=== PATIENT | female | born 1945 | race Caucasian/White ===

== ENCOUNTER 2016-09-18 14:20 | Observation (INO) | payer MEDICARE ==
--- NOTE | 2016-09-18 14:54 | C.PDOC ---
History Of Present Illness 70 yo female, presents with dunn and lef t arm numnbess. as per pt, dunn x 2 days. noted left arm numbness, 8am. no fevers, trauma, cp, sob, or other complaints. Time Seen by Provider: 09/18/16 14:39 Chief Complaint (Nursing): Upper Extremity Problem/Injury Past Medical History Reviewed: Historical Data, Nursing Documentation, Vital Signs Vital Signs: Last Vital Signs Temp 97.9 F 09/19/16 07:20 Pulse 71 09/19/16 07:20 Resp 20 09/19/16 07:20 BP 111/68 09/19/16 07:20 Pulse Ox 97 09/19/16 07:20 Family History: States: Unknown Family Hx - Social History Hx Tobacco Use: No Hx Alcohol Use: No Hx Substance Use: No - Immunization History Hx Tetanus Toxoid Vaccination: No Hx Influenza Vaccination: No Hx Pneumococcal Vaccination: No Review Of Systems Except As Marked, All Systems Reviewed And Found Negative. Neurological: Positive for: Numbness, Headache Physical Exam - Physical Exam Appears: Well, No Acute Distress Skin: Normal Color, Warm, Dry Eye(s): bilateral: Normal Inspection, PERRL, EOMI Nose: Normal Throat: Normal Neck: Normal Cardiovascular: Rhythm Regular Respiratory: Normal Breath Sounds Gastrointestinal/Abdominal: Normal Exam Back: Normal Inspection Extremity: Normal ROM Neurological/Psych: Normal Speech, Normal Cognition, Normal Cranial Nerves, No Cerebellar Signs, Normal Motor, Normal Sensation ED Course And Treatment - Laboratory Results Result Diagrams: 09/18/16 15:23 09/18/16 15:23 O2 Sat by Pulse Oximetry: 98 NIHSS Stroke Scale - Date/Time Evaluation Performed Date Performed: 09/18/16 Time Performed: 16:32 - How Severe is the Stoke Level of Consciousness: 0=Alert LOC to Questions: 0=Both comments correct LOC to commands: 0=Obeys both correctly Best Gaze: 0=Normal Visual: 0=No visual loss Facial: 0=Normal Motor Arm - Left: 0=No drift Motor Arm - Right: 0=No drift Motor Leg - Left: 0=No drift Motor Leg - Right: 0=No drift Limb Ataxia: 0=Absent Sensory: 0=Normal Best Language: 0=No aphasia Dysarthia: 0=Normal articulation Extinction & Inattention (Neglect): 0=Normal, no object Score: 0 Severity Of Stroke: 0= No Stroke rTPA Inclusion/Exclusion - Refusal of Treatment Patient Refused Treatment: No - Inclusion Criteria for Altepase Patient is 18 years or Older: Yes The Clinical Diagnosis of Ischemic Stroke That is Causing a Potentially Disabling Neurological Deficit: No Time of Onset is Well Established to be Less Than 270 Minute Before Treatment Would Begin: No Risk/Benefit Discussed With Patient/Family Member Present: Yes Medical Decision Making Medical Decision Making: r/o intracranial, metabolic etiology - labs imaging pending ekg nsr [address] t wave changes. normal intervals. 430: case discussed with dr cavazos. will obs for r/o cva Disposition - Disposition Disposition: HOSPITALIZED Disposition Time: 04:00 Condition: FAIR - Clinical Impression Clinical Impression: Arm numbness Decision To Admit - Pt Status Changed To: Hospital Disposition Of: Observation - . Bed Request Type: Telemetry Admitting Physician: Hiram Cavazos Patient Diagnosis: Arm numbness
[2016-09-18 15:30] LABS: BASO # 0.1 K/uL (0.0-0.2); BASO % 1.3 % (0.0-2.0); EOS # 0.1 K/uL (0.0-0.7); EOS % 1.8 % (0.0-4.0); LYMPH % 24.6 % (20.0-40.0); MEAN CELL VOLUME 86.8 fL (81.0-99.0); MEAN CORPUSCULAR HEMOGLOBIN 28.4 pg (27.0-31.0); MEAN CORPUSCULAR HGB CONC 32.7 g/dL (33.0-37.0); MEAN PLATELET VOLUME 9.1 fL (7.2-11.7); MONO # 0.5 K/uL (0.0-0.8); MONO % 6.4 % (0.0-10.0); RED CELL DISTRIBUTION WIDTH 13.8 % (11.5-14.5); WHITE BLOOD COUNT 8.1 K/uL (4.8-10.8)
--- NOTE | 2016-09-18 15:39 | RAD ---
HISTORY: chest pain COMPARISON: None available. TECHNIQUE: Chest, one view. FINDINGS: LUNGS: 1.8 x 1.4 cm rounded nodular density, inferior right upper lobe. No focal consolidation. Please note that chest x-ray has limited sensitivity for the detection of pulmonary masses. PLEURA: No significant pleural effusion identified. No definite pneumothorax . CARDIOVASCULAR: Mild cardiomegaly. OSSEOUS STRUCTURES: Degenerative changes of the spine and shoulders. Acromioclavicular arthropathy. VISUALIZED UPPER ABDOMEN: Unremarkable. OTHER FINDINGS: None. IMPRESSION: 1.8 x 1.4 cm rounded nodular density, inferior right upper lobe. CT may be considered for further evaluation. Mild cardiomegaly.
[2016-09-18 15:42] LABS: CHLORIDE 100 mmol/L (98-107); INR 1.1; SODIUM 141 mmol/L (132-148)
[2016-09-18 15:43] LABS: POTASSIUM 3.6 mmol/L (3.6-5.2)
[2016-09-18 15:45] LABS: ALB/GLOB RATIO 1.1 (1.0-2.1); ALKALINE PHOSPHATASE 65 U/L (38-126); ALT/SGPT 17 U/L (9-52); AST/SGOT 24 U/L (14-36); BILIRUBIN,TOTAL 0.3 mg/dL (0.2-1.3); BLOOD UREA NITROGEN 19 mg/dL (7-17); CARBON DIOXIDE 28 mmol/L (22-30); GFR AFRICAN-AMERICAN > 60; GLUCOSE,RANDOM 113 mg/dL (65-105); TOTAL PROTEIN 7.1 g/dL (6.3-8.3)
[2016-09-18 15:46] LABS: CALCIUM 8.6 mg/dl (8.6-10.4)
--- NOTE | 2016-09-18 15:54 | CT ---
PROCEDURE: CT HEAD WITHOUT CONTRAST. HISTORY: dunn, left arm numbness COMPARISON: CT head without and with IV contrast performed 06/22/15, brain without and with IV contrast performed 08/22/16 TECHNIQUE: Axial computed tomography images were obtained through the head/brain without intravenous contrast. Radiation dose: Total exam DLP = 1051.40 mGy-cm. FINDINGS: HEMORRHAGE: No intracranial hemorrhage. BRAIN: Diffuse atrophy with prominence of the ventricles and sulci noted. No mass effect or edema. Intracranial atherosclerotic calcifications. Scattered periventricular and subcortical white matter hypodensities, which are nonspecific, but often seen with chronic microvascular ischemic disease. Please note that MRI with diffusion imaging is more sensitive in the detection of acute ischemic event. VENTRICLES: No hydrocephalus. CALVARIUM: Unremarkable. PARANASAL SINUSES: Unremarkable as visualized. No significant inflammatory changes. MASTOID AIR CELLS: Unremarkable as visualized. No inflammatory changes. OTHER FINDINGS: None. IMPRESSION: Generalized atrophy. Nonspecific white matter changes.
[2016-09-18 16:37] LABS: RBC URINE 4 /hpf (0-3); URINE BILIRUBIN NEGATIVE (NEGATIVE); URINE BLOOD NEGATIVE (NEGATIVE); URINE COLOR Yellow (YELLOW); URINE GLUCOSE (UA) NORMAL (Normal); URINE KETONE NEGATIVE (NEGATIVE); URINE LEUKOCYTE ESTERASE NEG Leu/uL (Negative); URINE PROTEIN NEGATIVE (NEGATIVE); URINE UROBILINOGEN NORMAL mg/dL (0.2-1.0); WBC URINE 2 /hpf (0-5)
--- NOTE | 2016-09-18 17:58 | MRI ---
PROCEDURE: MRI BRAIN WITHOUT CONTRAST HISTORY: r/o cva COMPARISON: None. TECHNIQUE: Multiplanar, multisequence MR images of the brain were obtained without intravenous contrast enhancement. FINDINGS: HEMORRHAGE: None DWI: No evidence of an acute or early subacute infarction. BRAIN PARENCHYMA: No mass effect or edema. Chronic microvascular changes are seen in the periventricular white matter. VENTRICLES: Unremarkable. No hydrocephalus. CRANIUM: Unremarkable. ORBITS: Grossly unremarkable. PARANASAL SINUSES/MASTOIDS: Clear VASCULAR SYSTEM: Skull base flow voids intact. OTHER FINDINGS: None. IMPRESSION: No acute intracranial findings
--- NOTE | 2016-09-18 22:37 | CP.PCM.HP ---
History of Present Illness - History of Present Illness History of Present Illness: cc: L arm numbness/tingling with intractable headache > HPI: Pt is a 70 you female well known to me for many years, who presented to the ER complaining of L arm numbness that progressively got worse since Thursday, the day of the snowstorm. Pt says this symptom was accompnaied by blurry vision at times. Pt took 2 Advils to ease the pain, then subsequetly fell asleep. Pt awakened still with the headache on Thursday morning and proceeded to go about here usual activities. Headache remained and as the day wore on pt experienced numbness on the fingertips of the L hand. Pt had been having problems with her L shoulder and had been doing most things with her L hand. Pt also started developing palpitations accompanied by sharp shooting chest pains pptd by inhalation. Pt took 2 ibuprofen again and fell asleep. On the morning of admission, pt was on her way to her faith meeting but got lost and couldn't find her way back, Pt again developed palpitations, this time with renewed sensation of numbness and tingling on the L hand. Persistence of her symptoms prompted pt to go to the ER for evaluation and monitoring. Present on Admission - Present on Admission Any Indicators Present on Admission: No History of DVT/PE: No History of Uncontrolled Diabetes: No Urinary Catheter: No Decubitus Ulcer Present: No Review of Systems - Review of Systems All systems: reviewed and no additional remarkable complaints except (no other associated symptoms with headache: no photophobia, no N/V) Past Patient History - Infectious Disease Hx of Infectious Diseases: None - Tetanus Immunizations Tetanus Immunization: Unknown - Past Medical History & Family History Past Medical History?: No - Past Social History Smoking Status: Former Smoker Chewing Tobacco Use: No Cigar Use: No Alcohol: None Drugs: Denies Home Situation {Lives}: Alone Domestic Violence: Negative (pt ) - CARDIAC Hx Cardiac Disorders: No - NEUROLOGICAL Hx Neurological Disorder: No - HEENT Hx Cataracts: No - RENAL Hx Chronic Kidney Disease: No - HEMATOLOGICAL/ONCOLOGICAL Hx Anemia: Yes - MUSCULOSKELETAL/RHEUMATOLOGICAL Hx Falls: No - PSYCHIATRIC Hx Anxiety: Yes Hx Substance Use: No - SURGICAL HISTORY Hx Surgeries: No - ANESTHESIA Hx Anesthesia: No Meds Allergies/Adverse Reactions: Allergies Allergy/AdvReac Type Severity Reaction Status Date / Time latex Allergy Verified 09/18/16 14:37 Physical Exam - Constitutional Appears: No Acute Distress - Head Exam Head Exam: ATRAUMATIC, NORMAL INSPECTION, NORMOCEPHALIC - Eye Exam Eye Exam: EOMI, Normal appearance, Periorbital tenderness Pupil Exam: NORMAL ACCOMODATION, PERRL - ENT Exam ENT Exam: Mucous Membranes Moist, Normal Exam - Neck Exam Neck exam: Positive for: Full Rom, Normal Inspection - Respiratory Exam Respiratory Exam: Clear to Auscultation Bilateral, NORMAL BREATHING PATTERN - Cardiovascular Exam Cardiovascular Exam: REGULAR RHYTHM, +S1, +S2 - GI/Abdominal Exam GI & Abdominal Exam: Normal Bowel Sounds - Rectal Exam Rectal Exam: Deferred - Back Exam Back exam: muscle spasm, NORMAL INSPECTION, tenderness - Psychiatric Exam Psychiatric exam: Normal Affect - Skin Skin Exam: Dry, Normal Color, Warm Results - Vital Signs Recent Vital Signs: Last Vital Signs Temp 97.7 F 09/18/16 19:53 Pulse 71 09/18/16 19:53 Resp 20 09/18/16 19:53 BP 137/73 09/18/16 19:53 Pulse Ox 96 09/18/16 19:53 - Labs Result Diagrams: 09/18/16 15:23 09/18/16 15:23 - EKG Data EKG Specific Queries Rhythm: NSR Assessment & Plan (1) Arm numbness Assessment and Plan: r/o anginal equivalent. Admit to tele obs Status: Acute Priority: High (2) Palpitations Status: Acute (3) Osteoarthritis of right shoulder region Status: Acute (4) Mass of upper lobe of right lung Status: Acute Decision To Admit - Pt Status Changed To: Hospital Disposition Of: Observation - Admit Certification Admit to Inpatient:: Admit to observation today - . Bed Request Type: ICU Admitting Physician: Dr. Reeves
[2016-09-19] MEDS ORDERED: Iodixanol 320 mg/ml 150 ml Bottle IV ONE (11:42)
[2016-09-19 12:03] VITALS: O2SAT 99
--- NOTE | 2016-09-19 13:06 | CT ---
PROCEDURE: CT MAXILLOFACIAL BONES WITHOUT CONTRAST HISTORY: mass on inferior lobe of R lung COMPARISON: None TECHNIQUE: Contiguous axial CT images of the maxillofacial bones were obtained. Coronal and sagittal reformats were generated. Radiation dose: Total exam DLP = 794.65 mGy-cm. FINDINGS: NASAL BONES: Unremarkable. ORBITS: Unremarkable. PARANASAL SINUSES/ MASTOIDS: Mild mucosal thickening involving the right maxillary sinus. MAXILLA: Unremarkable. MANDIBLE/ TEMPOROMANDIBULAR JOINTS: Unremarkable. SKULL BASE: Unremarkable. TEMPORAL BONES: Middle ears and mastoid grossly unremarkable. OTHER FINDINGS: Hypodense nodule in the right thyroid lobe. Mildly prominent lymphadenopathy in the neck. Degenerative changes of the upper cervical spine. IMPRESSION: No acute fracture or dislocation. Mild sinus disease. Mild degenerative changes of the of the cervical spine.
--- NOTE | 2016-09-19 13:23 | CT ---
PROCEDURE: CT Chest with contrast HISTORY: right middle lung mass COMPARISON: Comparison is made to the previous chest x-ray dated 09/18/2016 TECHNIQUE: Contiguous axial images were obtained through the chest with intravenous contrast enhancement. Sagittal and coronal reconstructions were performed. IV contrast: 100 mL Visipaque 320 Radiation dose (DLP): 195.76 mGy-cm. FINDINGS: LUNGS: There is well demarcated pleural-based nodule/small mass at the posterior right lung upper lobe measures 2 centimeter in the longitudinal diameter 1.4 centimeter in the AP diameter and 1.4 centimeter in the transverse diameter. There are foci of coarse calcification in the central portion of this nodule/small mass. The differential diagnosis includes but not limited to pulmonary hamartoma less likely malignant neoplasm such as bronchogenic carcinoma carcinoid tumour or pulmonary metastasis. There is 7 millimeter nodule seen at the right lung upper lobe image 62 series 3. There is 2 millimeter calcified nodule at the left lung upper lobe image 58 series 3. MEDIASTINUM: Unremarkable thoracic aorta. No aneurysm or dissection. It is mildly enlarged. Main pulmonary artery unremarkable. No vascular congestion. No lymphadenopathy. PLEURA: No pleural fluid. No pneumothorax. BONES: No fracture. No destructive lesion. UPPER ABDOMEN: Grossly unremarkable. OTHER FINDINGS: None. IMPRESSION: 2 centimeter pleural-based nodule contains coarse calcifications seen at the posterior peripheral right lung upper lobe. The differential diagnosis includes but not limited to benign hamartoma versus malignant neoplasm such as bronchogenic carcinoma, carcinoid tumor or pulmonary metastasis. Three months follow-up reassessment is suggested. 7 millimeter noncalcified nodule at the right lung upper lobe. No evidence of acute pathology in the chest. Mild cardiomegaly.
--- NOTE | 2016-09-19 14:40 | CT ---
PROCEDURE: CT NECK WITH CONTRAST HISTORY: mass, 1.8x1.6 cm mass, R middel lung. COMPARISON: None TECHNIQUE: CT of the neck with intravenous contrast. Coronal and sagittal reformats generated. Intravenous contrast dose: 421.24 Radiation dose: DLP 100 mL Visipaque mGy-cm FINDINGS: NASOPHARYNX: Unremarkable. SUPRAHYOID NECK: Unremarkable oropharynx, oral cavity, parapharyngeal space and retropharyngeal space. INFRAHYOID NECK: Unremarkable larynx, hypopharynx, and supraglottic space. Vocal cords intact. MASS: None. GLANDS: Parotid and submandibular glands unremarkable. Normal size thyroid gland, without nodule. LYMPH NODES: Normal. No lymphadenopathy. CERVICAL SPINE: No fracture or focal lesion. VASCULAR STRUCTURES: Unremarkable. OTHER FINDINGS: Partially image pleural-based opacity/nodule at the right lung upper lobe image 97 series 2. IMPRESSION: No CT evidence of mass lesion or lymphadenopathy in the neck. No evidence of acute pathology in the neck. Partially imaged pleural-based nodule/opacity at the right lung upper lobe.
--- NOTE | 2016-09-19 15:10 | VASCLAB ---
PROCEDURE: HISTORY: TIA vs CVA COMPARISON: None available. TECHNIQUE: Grayscale and duplex Doppler evaluation of the cervical carotid and vertebral arteries were performed. The common carotid, carotid bifurcations and cervical Internal Carotid Artery (ICA) and proximal External Carotid Artery (ECA) were evaluated. The vertebral arteries were evaluated for gross patency and flow direction. Report prepared by Eder Beyer, BS, RVT FINDINGS: RIGHT CAROTID ARTERIES: 1. Common Carotid Artery: No significant focal plaque formation of the right common carotid artery. Maximum Peak Systolic velocity: 107 cm/sec: End-diastolic velocity 31 cm/sec. 2. Carotid Bifurcation: Homogeneous plaque formation. Maximum Peak Systolic velocity: 130 cm/sec: End-diastolic velocity 40 cm/sec. 3. Internal Carotid Artery: Minimal plaque formation of the right proximal ICA which does not result in hemodynamically significant stenosis. Plaque description: Homogeneous 3.1. Proximal Segment: Peak systolic velocity 108 cm/sec: End-diastolic velocity 32 cm/sec - % stenosis 0-15% 3.2. Middle Segment: Peak systolic velocity 88 cm/sec: End-diastolic velocity 31 cm/sec - % stenosis 0-15% 3.3. Distal Segment: Peak systolic velocity 58 cm/sec: End-diastolic velocity 21 cm/sec - % stenosis 0-15% 4. External Carotid Artery: No significant focal plaque formation. Peak systolic velocity 104 cm/sec 5. ICA/CCA Ratio: 1.2 LEFT CAROTID ARTERIES: 1. Common Carotid Artery: No significant focal plaque formation of the left common carotid artery. Maximum Peak Systolic velocity: 96 cm/sec: End-diastolic velocity 27 cm/sec. 2. Carotid Bifurcation: plaque formation. Maximum Peak Systolic velocity: 94 cm/sec: End-diastolic velocity 27 cm/sec. 3. Internal Carotid Artery: Plaque description: 3.1. Proximal Segment: Peak systolic velocity 126 cm/sec: End-diastolic velocity 31 cm/sec - % stenosis 0-15% 3.2. Middle Segment: Peak systolic velocity 54 cm/sec: End-diastolic velocity 20 cm/sec - % stenosis 0-15% 3.3. Distal Segment: Peak systolic velocity 118 cm/sec: End-diastolic velocity 40 cm/sec - % stenosis 0-15% 4. External Carotid Artery: No significant focal plaque formation. Peak systolic velocity 100 cm/sec 5. ICA/CCA Ratio: 1.3 VERTEBRAL ARTERIES: 1. Right Vertebral Artery: The right vertebral artery flow direction is antegrade. 2. Left Vertebral Artery: The left vertebral artery flow direction is antegrade. OTHER FINDINGS: 1. Right Brachial Blood pressure: 146 mmHg. 2. Left Brachial Blood pressure: mmHg. IMPRESSION: RIGHT: Duplex scan does not suggest hemodynamically significant stenosis of the right extracranial carotid arteries. LEFT: Duplex scan does not suggest hemodynamically significant stenosis of the left extracranial carotid arteries.
[2016-09-19 15:19] VITALS: BP 121/73; RESP 20; TEMP 97.8
[2016-09-19 15:27] LABS: CARCINOEMBRYONIC ANTIGEN 0.5 ng/mL (0-3.0)
[2016-09-19] MEDS ORDERED: cefTRIAXone IV 1 gm in Dextros 50 ML IVPB SCH (16:00)
--- NOTE | 2016-09-19 17:03 | CP.PCM.PN ---
Subjective - Date & Time of Evaluation Date of Evaluation: 09/19/16 Time of Evaluation: 16:59 - Subjective Subjective: Pt admitted yesterday for L arm numbness accompanied by a headache that had started several days ago. The headache had started to calm down and pt was pain free when seen, except fora persisting tingling on the left fingertips. Objective - Vital Signs/Intake and Output Vital Signs (last 24 hours): Temp Pulse Resp BP Pulse Ox 97.8 F 61 20 121/73 99 09/19/16 15:17 09/19/16 15:17 09/19/16 15:17 09/19/16 15:17 09/19/16 15:17 Intake and Output: 09/19/16 09/19/16 06:59 18:59 Intake Total 350 Balance 350 - Medications Medications: Current Medications Acetaminophen (Tylenol 325mg Tab) 650 mg PO Q6 PRN PRN Reason: Headache Last Admin: 09/19/16 11:53 Dose: 650 mg Ceftriaxone Sodium (Rocephin Iv 1 Gm Duplex) 50 mls @ 50 mls/30 min IVPB Q12H [facility] Last Admin: 09/19/16 16:22 Dose: 50 mls/30 min Influenza Virus Vaccine (Afluria) 45 mcg IM .ONCE ONE Stop: 09/20/16 10:01 Pneumococcal Polyvalent Vaccine (Pneumovax 23 Vaccine) 0.5 ml IM .ONCE ONE Stop: 09/20/16 10:01 Raloxifene HCl (Evista) 60 mg PO DAILY [facility] Last Admin: 09/19/16 11:00 Dose: 60 mg - Labs Labs: PT 12.4 SECONDS (9.7-12.2) H 09/18/16 15:23 INR 1.1 09/18/16 15:23 APTT 33 SECONDS (21-34) 09/18/16 15:23 Assessment and Plan (1) Arm numbness Status: Acute (2) Palpitations Status: Acute (3) Osteoarthritis of right shoulder region Status: Acute (4) Mass of upper lobe of right lung Status: Acute
--- NOTE | 2016-09-19 17:29 | CP.PCM.DIS ---
Provider - Provider Date of Admission: 09/18/16 16:33 Attending physician: Hiram Rose MD Primary care physician: Hiram Rose MD Consults: Dr. Leslye Trevino Time Spent in preparation of Discharge (in minutes): 0 Diagnosis - Discharge Diagnosis (1) Arm numbness Status: Resolved Priority: High (2) Palpitations Status: Resolved (3) Osteoarthritis of right shoulder region Status: Resolved (4) Mass of upper lobe of right lung Status: Acute Comment: being worked up. to obtain PET scan outpatient to be arranged by [facility] Hospital Course - Lab Results Lab Results: Most Recent Lab Values WBC 8.1 K/uL (4.8-10.8) 09/18/16 15:23 RBC 4.38 Mil/uL (3.80-5.20) 09/18/16 15:23 Hgb 12.4 g/dL (11.0-16.0) 09/18/16 15: Hct 38.0 % (34.0-47.0) 09/18/16 15:23 MCV 86.8 fL (81.0-99.0) 09/18/16 15:23 MCH 28.4 pg (27.0-31.0) 09/18/16 15: MCHC 32.7 g/dL (33.0-37.0) L 09/18/16 15: RDW 13.8 % (11.5-14.5) 09/18/16 15:23 Plt Count 287 K/uL (130-400) 09/18/16 15: MPV 9.1 fL (7.2-11.7) 09/18/16 15:23 Neut % (Auto) 65.9 % (50.0-75.0) 09/18/16 15:23 Lymph % (Auto) 24.6 % (20.0-40.0) 09/18/16 15:23 [place] % (Auto) 6.4 % (0.0-10.0) 09/18/16 15:23 Eos % (Auto) 1.8 % (0.0-4.0) 09/18/16 15:23 Baso % (Auto) 1.3 % (0.0-2.0) 09/18/16 15:23 Neut # 5.3 K/uL (1.8-7.0) 09/18/16 15:23 Lymph # 2.0 K/uL (1.0-4.3) 09/18/16 15:23 [place] # 0.5 K/uL (0.0-0.8) 09/18/16 15:23 Eos # 0.1 K/uL (0.0-0.7) 09/18/16 15:23 Baso # 0.1 K/uL (0.0-0.2) 09/18/16 15:23 PT 12.4 SECONDS (9.7-12.2) H 09/18/16 15:23 INR 1.1 09/18/16 15:23 APTT 33 SECONDS (21-34) 09/18/16 15:23 Sodium 141 mmol/L (132-148) 09/18/16 15:23 Potassium 3.6 mmol/L (3.6-5.2) 09/18/16 15:23 Chloride 100 mmol/L (98-107) 09/18/16 15:23 Carbon Dioxide 28 mmol/L (22-30) 09/18/16 15:23 Anion Gap 16 (10-20) 09/18/16 15:23 BUN 19 mg/dL (7-17) H 09/18/16 15:23 Creatinine 0.8 MG/DL (0.7-1.2) 09/18/16 15:23 Est GFR ( Amer) > 60 09/18/16 15:23 Est GFR (Non-Af Amer) > 60 09/18/16 15:23 POC Glucose (mg/dL) 78 mg/dL (65-110) 09/19/16 11:44 Random Glucose 113 mg/dL (65-105) H 09/18/16 15:23 Calcium 8.6 mg/dl (8.6-10.4) 09/18/16 15:23 Total Bilirubin 0.3 mg/dL (0.2-1.3) 09/18/16 15:23 AST 24 U/L (14-36) 09/18/16 15:23 ALT 17 U/L (9-52) 09/18/16 15:23 Alkaline Phosphatase 65 U/L (38-126) 09/18/16 15:23 Troponin I < 0.0120 ng/mL (0.00-0.120) 09/18/16 15:23 Total Protein 7.1 g/dL (6.3-8.3) 09/18/16 15: Albumin 3.7 g/dL (3.5-5.0) 09/18/16 15: Globulin 3.4 gm/dL (2.2-3.9) 09/18/16 15: Albumin/Globulin Ratio 1.1 (1.0-2.1) 09/18/16 15:23 Carcinoembryonic Ag 0.4 ng/mL (0-3.0) 09/19/16 15:28 Urine Color Yellow (YELLOW) 09/18/16 16:18 Urine Clarity Hazy (Clear) 09/18/16 16:18 Urine pH 7.0 (5.0-8.0) 09/18/16 16:18 Ur Specific [place] 1.021 (1.003-1.030) 09/18/16 16:18 Urine Protein Negative mg/dL (NEGATIVE) 09/18/16 16:18 Urine Glucose (UA) Normal mg/dL (Normal) 09/18/16 16:18 Urine Ketones Negative mg/dL (NEGATIVE) 09/18/16 16:18 Urine Blood Negative (NEGATIVE) 09/18/16 16:18 Urine Nitrate Negative (NEGATIVE) 09/18/16 16:18 Urine Bilirubin Negative (NEGATIVE) 09/18/16 16:18 Urine Urobilinogen Normal mg/dL (0.2-1.0) 09/18/16 16:18 Ur Leukocyte Esterase Neg Deondre/uL (Negative) 09/18/16 16:18 Urine WBC (Auto) 2 /hpf (0-5) 09/18/16 16:18 Urine RBC (Auto) 4 /hpf (0-3) H 09/18/16 16:18 Ur Squamous Epith Cells 16 /hpf (0-5) H 09/18/16 16:18 - Hospital Course Hospital Course: Pt admitted for observation last night after developing L arm numbness with a headache that persisted for several days. Pt's primary presenting symptom resolved and all studies re: CT scan of the head, MRI of the brain, carotid ultrasound bilateral were all normal. 2D echo results pending at time of discharge but do not anticipate any issues. Consults obtained with Heme Onc and Pulmonary, and suggestion to obtain PET scan before any invasive procedures. Pt and daughters agree to this plan. Advised to call if she gets renewed headaches of this type in the future. Discharge Exam - Head Exam Head Exam: ATRAUMATIC, NORMAL INSPECTION, NORMOCEPHALIC - Eye Exam Eye Exam: Normal appearance Pupil Exam: NORMAL ACCOMODATION - ENT Exam ENT Exam: Normal Exam - Neck Exam Neck exam: Normal Inspection - Respiratory Exam Respiratory Exam: NORMAL BREATHING PATTERN - Cardiovascular Exam Cardiovascular Exam: REGULAR RHYTHM Additional comments: telemetry reviewed: no alarms since admission - GI/Abdominal Exam GI & Abdominal Exam: Normal Bowel Sounds, Unremarkable - Rectal Exam Rectal Exam: Deferred - Exam Exam: NORMAL INSPECTION - Back Exam Back exam: NORMAL INSPECTION - Neurological Exam Neurological exam: Alert, CN II-XII Intact, Normal Gait, Oriented x3 - Psychiatric Exam Psychiatric exam: Normal Affect, Normal Mood - Skin Skin Exam: Dry, Intact, Normal Color, Warm Discharge Plan - Follow Up Plan Condition: GOOD Disposition: HOME/ ROUTINE Additional Instructions: > follow up after obtaining PET Scan > Obtain xray from [facility] [place] > will continue abx at home for mild sinusitis Clinical Quality Measures - CQM - Stroke Antithrombotic Prescribed: Medical Contraindication Present Contranindication/Reason for not providing: Other (no indic ) If Other selected, reason for not providing: no indication Anticoagulation Prescribed for Atrial Flutter, Atrial Fibrillation and History of:: Not Applicable Statin prescribed: Medical Contraindication Present Contraindication/Reason for not providing: Other (cholesterol normal at office tests) If Other selected, reason for not providing: no indication
--- NOTE | 2016-09-19 18:00 | CP.PCM.CON ---
History of Present Illness - History of Present Illness History of Present Illness: 70 yo woman with no sig PMHx, admitted with new onset numbness of left upper extremity with vision disturbances, no chest pain, palpitations, SOB. As part of the work up a CXRay done revealed a 2cm rt. upper lobe lesion and a second subcm nodule in the same lobe. Patient otherwise is asymptomatic, feeling much better. Denies wt.loss, fever, nt. sweats. Family present at bedside and they give me the history of a lung nodule being worked up several years ago in [facility] [place]. Past Patient History - Infectious Disease Hx of Infectious Diseases: None - Tetanus Immunizations Tetanus Immunization: Unknown - Past Medical History & Family History Past Medical History?: No - Past Social History Smoking Status: Former Smoker Chewing Tobacco Use: No Cigar Use: No Alcohol: None Drugs: Denies Home Situation {Lives}: Alone Domestic Violence: Negative (pt ) - CARDIAC Hx Cardiac Disorders: No - NEUROLOGICAL Hx Neurological Disorder: No - HEENT Hx Cataracts: No - RENAL Hx Chronic Kidney Disease: No - HEMATOLOGICAL/ONCOLOGICAL Hx Anemia: Yes - MUSCULOSKELETAL/RHEUMATOLOGICAL Hx Falls: No - PSYCHIATRIC Hx Substance Use: No - SURGICAL HISTORY Hx Surgeries: No - ANESTHESIA Hx Anesthesia: No Meds Home Medications: Home Medication List Medication Instructions Recorded Confirmed Type Acetaminophen [Tylenol 325mg tab] 650 mg PO Q6 PRN #0 tab 09/19/16 Rx Allergies/Adverse Reactions: Allergies Allergy/AdvReac Type Severity Reaction Status Date / Time latex Allergy Verified 09/18/16 14:37 - Medications Medications: Current Medications Acetaminophen (Tylenol 325mg Tab) 650 mg PO Q6 PRN PRN Reason: Headache Last Admin: 09/19/16 11:53 Dose: 650 mg Ceftriaxone Sodium (Rocephin Iv 1 Gm Duplex) 50 mls @ 50 mls/30 min IVPB Q12H CARLOS Last Admin: 09/19/16 16:22 Dose: 50 mls/30 min Influenza Virus Vaccine (Afluria) 45 mcg IM .ONCE ONE Stop: 09/20/16 10:01 Pneumococcal Polyvalent Vaccine (Pneumovax 23 Vaccine) 0.5 ml IM .ONCE ONE Stop: 09/20/16 10:01 Raloxifene HCl (Evista) 60 mg PO DAILY CARLOS Last Admin: 09/19/16 11:00 Dose: 60 mg Results - Vital Signs Recent Vital Signs: Last Vital Signs Temp 97.8 F 09/19/16 15:17 Pulse 61 09/19/16 15:17 Resp 20 09/19/16 15:17 BP 121/73 09/19/16 15:17 Pulse Ox 99 09/19/16 15:17 - Labs Result Diagrams: 09/18/16 15:23 09/18/16 15:23 Labs: Laboratory Results - last 24 hr 09/19/16 09/19/16 11:44 15:28 POC Glucose (mg/dL) 78 Carcinoembryonic Ag 0.4 Assessment & Plan (1) Mass of upper lobe of right lung Assessment and Plan: 2 cm mass in the rt. upper lobe of the lung in this distant smoker, no pulmonary symptoms, normal CEA level, unclear if this an old finding. Will get old records from [facility] [place], if there is a change in the findings, will schedule a PET scan. Family is aware of the differential diagnosis and that it could be a benign versus malignant/ metastatic lesion and that a biopsy may be necessary for diagnosis. Status: Acute
[2016-09-19 18:16] VITALS: PULSE 62
--- NOTE | 2016-09-20 01:10 | CP.PCM.CON ---
Past Patient History - Infectious Disease Hx of Infectious Diseases: None - Tetanus Immunizations Tetanus Immunization: Unknown - Past Medical History & Family History Past Medical History?: No - Past Social History Smoking Status: Former Smoker Chewing Tobacco Use: No Cigar Use: No Alcohol: None Drugs: Denies Home Situation {Lives}: Alone Domestic Violence: Negative (pt ) - CARDIAC Hx Cardiac Disorders: No - NEUROLOGICAL Hx Neurological Disorder: No - HEENT Hx Cataracts: No - RENAL Hx Chronic Kidney Disease: No - HEMATOLOGICAL/ONCOLOGICAL Hx Anemia: Yes - MUSCULOSKELETAL/RHEUMATOLOGICAL Hx Falls: No - PSYCHIATRIC Hx Substance Use: No - SURGICAL HISTORY Hx Surgeries: No - ANESTHESIA Hx Anesthesia: No Meds Home Medications: Home Medication List Medication Instructions Recorded Confirmed Type Acetaminophen [Tylenol 325mg tab] 650 mg PO Q6 PRN #0 tab 09/19/16 Rx Allergies/Adverse Reactions: Allergies Allergy/AdvReac Type Severity Reaction Status Date / Time latex Allergy Verified 09/18/16 14:37 Results - Vital Signs Recent Vital Signs: Last Vital Signs Temp 97.8 F 09/19/16 15:17 Pulse 62 09/19/16 18:16 Resp 20 09/19/16 15:17 BP 121/73 09/19/16 15:17 Pulse Ox 99 09/19/16 15:17 - Labs Result Diagrams: 09/18/16 15:23 09/18/16 15:23 Labs: Laboratory Results - last 24 hr 09/19/16 09/19/16 11:44 15:28 POC Glucose (mg/dL) 78 Carcinoembryonic Ag 0.4
[2016-09-20] MEDS ORDERED: Pneumococcal 23-Valent Vaccine IM ONE (10:00)
[2016-09-20] MEDS ORDERED: Influenza Virus Vaccine 45 mcg/0.5 ml Syr IM ONE (10:00)
--- NOTE | 2016-09-20 16:39 | CARD ---
APPROVED REPORT EXAM: Two-dimensional and M-mode echocardiogram with Doppler and color Doppler. Other Information Quality : GoodRhythm : NSR INDICATION CVA/TIA Palpitations M-Mode DIMENSIONS RVDd1.89 (2.1-3.2cm)Left Atrium (MM)3.51 (2.5-4.0cm) IVSd0.94 (0.7-1.1cm)Aortic Root2.77 (2.2-3.7cm) LVDd4.91 (4.0-5.6cm)Aortic Cusp Exc.1.69 (1.5-2.0cm) PWd1.04 (0.7-1.1cm)FS (%) 45 % LVDs2.70 (2.0-3.8cm)LVEF (%)76 (>50%) Aortic Valve AoV Peak Oykxsztw238.2cm/Bassam Peak GR.8mmHg Mitral Valve MV E Mjijdiep59.8cm/sMV A Soydhjgt16.3cm/sE/A ratio0.9 TDI E/Lateral E'0.0E/Medial E'0.0 Tricuspid Valve TR Peak Ckbvhopj943sq/sTR Peak Gr.80bvMlRMXR43guGz LEFT VENTRICLE The left ventricle is normal size. There is normal left ventricular wall thickness. The left ventricular function is normal. The left ventricular ejection fraction is within the normal range. No regional wall motion abnormalities noted. Transmitral Doppler flow pattern is Grade I-abnormal relaxation pattern. No left ventricle thrombus noted on this study. There is no ventricular septal defect visualized. There is no left ventricular aneurysm. There is no mass noted in the left ventricle. RIGHT VENTRICLE The right ventricle is normal size. There is normal right ventricular wall thickness. The right ventricular systolic function is normal. ATRIA The left atrium size is normal. The right atrium size is normal. The interatrial septum is intact with no evidence for an atrial septal defect. AORTIC VALVE The aortic valve is mildly sclerotic. There is mild aortic regurgitation. There is no aortic valvular stenosis. There is no aortic valvular vegetation. MITRAL VALVE The mitral valve is normal in structure and function. There is no evidence of mitral valve prolapse. There is no mitral valve stenosis. There is no mitral valve regurgitation noted. TRICUSPID VALVE The tricuspid valve is normal in structure. There is mild tricuspid regurgitation. There is no tricuspid valve prolapse or vegetation. There is no tricuspid valve stenosis. PULMONIC VALVE The pulmonary valve is normal in structure. There is mild pulmonic valvular regurgitation. There is no pulmonic valvular stenosis. GREAT VESSELS The aortic root is normal in size. The ascending aorta is normal in size. The pulmonary artery is normal. The IVC is normal in size and collapses >50% with inspiration. PERICARDIAL EFFUSION The pericardium appears normal. There is no pleural effusion. <Conclusion> The left ventricular ejection fraction is within the normal range. Transmitral Doppler flow pattern is Grade I-abnormal relaxation pattern. The aortic valve is mildly sclerotic. There is mild aortic regurgitation. There is mild tricuspid regurgitation. There is mild pulmonic valvular regurgitation.
--- NOTE | 2016-09-21 09:16 | CARD ---
APPROVED REPORT EKG Measurement Heart [id number] 112P53 [id number] <Conclusion> Normal sinus rhythm Possible Left atrial enlargement Borderline ECG
== END 2016-09-19 18:17 | disposition home or self-care (01) ==
LOC: C.ER 14:20 → C.9E 16:33 → C.6T 19:10
PROVIDERS: ADMIT Family Medicine; ATTEND Family Medicine
DX: R20.0 Anesthesia of skin (principal); M19.011 Primary osteoarthritis, right shoulder; Z87.891 Personal history of nicotine dependence; R51 Headache; R00.2 Palpitations; R91.8 Other nonspecific abnormal finding of lung field
CPT/HCPCS: 36415; 70450; 70486; 70491; 70551; 71010; 71260; 80053; 81001; 82378; 82948; 84484; 85025; 85610; 85730; 93005; 93306; 93880; 96374; 97116; 97162; 99285; G0378; G8978; G8979; J0696; J2060; Q9965

== ENCOUNTER 2016-11-24 20:23 | Emergency (ER) | payer MEDICARE, OTHER ==
[2016-11-24 20:23] VITALS: BMI 28.1
[2016-11-24 21:13] LABS: BASO # 0.1 K/uL (0.0-0.2); BASO % 0.7 % (0.0-2.0); EOS # 0.1 K/uL (0.0-0.7); EOS % 1.4 % (0.0-4.0); HEMATOCRIT 37.8 % (34.0-47.0); LYMPH # 2.3 K/uL (1.0-4.3); LYMPH % 25.1 % (20.0-40.0); MEAN CELL VOLUME 86.3 fL (81.0-99.0); MEAN CORPUSCULAR HEMOGLOBIN 28.5 pg (27.0-31.0); MEAN PLATELET VOLUME 8.8 fL (7.2-11.7); MONO # 0.7 K/uL (0.0-0.8); MONO % 7.4 % (0.0-10.0); RED CELL DISTRIBUTION WIDTH 13.8 % (11.5-14.5); WHITE BLOOD COUNT 9.3 K/uL (4.8-10.8)
[2016-11-24 21:22] LABS: CHLORIDE 102 mmol/L (98-107); POTASSIUM 3.7 mmol/L (3.6-5.2); SODIUM 139 mmol/L (132-148)
[2016-11-24 21:23] LABS: INR 1.1
[2016-11-24 21:24] LABS: ALB/GLOB RATIO 1.2 (1.0-2.1); ALKALINE PHOSPHATASE 75 U/L (38-126); AST/SGOT 26 U/L (14-36); BILIRUBIN,TOTAL 0.5 mg/dL (0.2-1.3); CARBON DIOXIDE 28 mmol/L (22-30); GFR AFRICAN-AMERICAN > 60; TOTAL PROTEIN 7.2 g/dL (6.3-8.3)
[2016-11-24 21:25] LABS: ALT/SGPT 18 U/L (9-52); BLOOD UREA NITROGEN 21 mg/dL (7-17); CALCIUM 8.5 mg/dl (8.6-10.4); GLUCOSE,RANDOM 104 mg/dL (65-105); MAGNESIUM 2.2 mg/dL (1.6-2.3)
[2016-11-24 21:35] VITALS: PULSE 71
[2016-11-24] MEDS ORDERED: Iodixanol 320 MG/ML 100 ML BOTTLE IV ONE (23:09)
--- NOTE | 2016-11-25 00:12 | CT ---
EXAM: CT Angiography Chest With Intravenous Contrast CLINICAL HISTORY: 71 years old, female; Pain; Chest pain; Additional info: SOB, R/O pe. Left arm numbness TECHNIQUE: Axial computed tomographic angiography images of the chest with intravenous contrast using pulmonary embolism protocol. This CT exam was performed using one or more of the following dose reduction techniques: automated exposure control, adjustment of the mA and/or kV according to patient size, and/or use of iterative reconstruction technique. MIP reconstructed images were created and reviewed. Coronal and sagittal reformatted images were created and reviewed. CONTRAST: 100 mL of [id number] administered intravenously. COMPARISON: No relevant prior studies available. FINDINGS: Pulmonary arteries: No pulmonary embolism. Aorta: Mild atherosclerotic disease of aorta. No aortic aneurysm. Lungs: Mild mosaic pattern of lung parenchyma. Minimal interlobular septal thickening. No consolidation. Few calcified granulomas. Few subcentimeter pulmonary nodules. 1.6 x 1.3 x 1.8 cm RIGHT upper lobe nodule with central calcification. Pleural space: No significant effusion. No pneumothorax. Heart: Borderline cardiomegaly. No significant pericardial effusion. Bones/joints: Mild degenerative changes of spine. No acute fracture. Soft tissues: Unremarkable. Lymph nodes: No pathologically enlarged lymph nodes. IMPRESSION: 1. No CT evidence of pulmonary embolism. 2. Possible early interstitial edema. Clinical correlation is needed. 3. Pulmonary nodules. Recommend follow-up CT at around 3, 9 and 24 months, dynamic contrast-enhanced CT, PET, and/or biopsy for patients with low or high risk of malignancy. 4. Incidental/non-acute findings are described above.
--- NOTE | 2016-11-25 00:22 | C.PDOC ---
Time Seen by Provider: 11/24/16 20:48 Chief Complaint (Nursing): Shortness Of Breath History Per: Patient, Family Onset/Duration Of Symptoms: Hrs (Since around 5pm today) Current Symptoms Are (Timing): Still Present Severity: Moderate Associated Symptoms: Anxiety, Tingling In Hands Or Face Additional History Per: Prior Records Past Medical History Reviewed: Historical Data, Nursing Documentation, Vital Signs Vital Signs: Last Vital Signs Temp 97.4 F L 11/24/16 20:41 Pulse 71 11/24/16 21:27 Resp 12 11/24/16 21:27 BP 147/75 11/24/16 21:27 Pulse Ox 97 11/24/16 21:27 - Medical History PMH: Anemia, Anxiety, Osteoporosis Other PMH: Pulmonary nodules Family History: States: Unknown Family Hx - Social History Hx Tobacco Use: No Hx Alcohol Use: No Hx Substance Use: No - Immunization History Hx Tetanus Toxoid Vaccination: No Hx Influenza Vaccination: No Hx Pneumococcal Vaccination: No Review Of Systems Except As Marked, All Systems Reviewed And Found Negative. Constitutional: Negative for: Fever, Weakness Eyes: Negative for: Vision Change Cardiovascular: Negative for: Chest Pain Respiratory: Positive for: Shortness of Breath. Negative for: Hemoptysis Gastrointestinal: Negative for: Vomiting, Abdominal Pain Musculoskeletal: Negative for: Neck Pain, Back Pain, Leg Pain Skin: Negative for: Rash Neurological: Positive for: Numbness (tongue and LUE). Negative for: Weakness, Incoordination, Change in Speech, Confusion, Seizures, Altered Mental Status Psych: Positive for: Anxiety. Negative for: Psychosis, Suicidal ideation Physical Exam - Physical Exam Appears: Non-toxic, No Acute Distress Skin: Normal Color, Warm, Dry, No Rash Head: Atraumatic, Normacephalic Eye(s): bilateral: PERRL, EOMI Neck: Normal ROM, Supple Cardiovascular: Rhythm Regular Respiratory: Normal Breath Sounds, No Accessory Muscle Use Gastrointestinal/Abdominal: Soft, No Tenderness Back: No CVA Tenderness Extremity: Normal ROM, No Pedal Edema, No Calf Tenderness Neurological/Psych: Oriented x3, Normal Speech, Normal Cognition, Normal Cranial Nerves, No Cerebellar Signs, Normal Motor, Normal Sensation ED Course And Treatment - Laboratory Results Result Diagrams: 11/24/16 21:06 11/24/16 21:06 Lab Interpretation: No Acute Changes ECG: Interpreted By Me, Viewed By Me ECG Rhythm: Sinus Rhythm ECG Interpretation: No Acute Changes Rate From EC O2 Sat by Pulse Oximetry: 97 Pulse Ox Interpretation: Normal - Radiology CXR: Interpreted by Me, Viewed By Me CXR Interpretation: Yes: No Acute Disease - CT Scan/US CTA of chest Other Rad Studies (CT/US): Read By Radiologist, Radiology Report Reviewed CT/US Interpretation: No evidence of PE. Progress Note: Pt is now asymptomatic and wants to go home. Reassessment Condition: Improved Progress - Interventions Interventions:: Observation - Medications Administered Oral: Other (Xanax) - Data Reviewed Data Reviewed: Lab, Diagnostic imaging, EKG, Old records - Patient Status Patient status: Completely improved - Continuity of Care Discussed patient case with:: Patient, Family-HIPPA compliant, ED Nurse - Patient Plan Patient Plan: Discharge, F/U with PCP, Continue present meds Disposition Counseled Patient/Family Regarding: Studies Performed, Diagnosis, Need For Followup - Disposition Referrals: Hiram Rose MD [Staff Provider] - Disposition: HOME/ ROUTINE Disposition Time: 00:24 Condition: IMPROVED Additional Instructions: Follow up with your doctor for further evaluation and treatment. Return to the ER if you develop chest pain, weakness, worsening of symptoms or if you have any other concerns. Instructions: Panic Attack (ED) - Clinical Impression Clinical Impression: Dyspnea, Anxiety
[2016-11-25 00:38] VITALS: BP 135/75; RESP 18; TEMP 98.3; O2SAT 98
--- NOTE | 2016-11-25 08:24 | RAD ---
PROCEDURE: CHEST RADIOGRAPH, 1 VIEW HISTORY: SOB COMPARISON: 09/18/2016 FINDINGS: LUNGS: Moderate venous congestion. Upper lobe granulomatous changes. PLEURA: No pneumothorax or pleural fluid seen. CARDIOVASCULAR: Normal. OSSEOUS STRUCTURES: No significant abnormalities. VISUALIZED UPPER ABDOMEN: Normal. OTHER FINDINGS: None. IMPRESSION: Moderate venous congestion. Upper lobe granulomatous changes.
--- NOTE | 2016-11-26 08:45 | CARD ---
APPROVED REPORT EKG Measurement Heart [id number] <Conclusion> Normal sinus rhythm Normal ECG
== END 2016-11-25 01:08 | disposition home or self-care (01) ==
LOC: C.ER 20:23
DX: F41.9 Anxiety disorder, unspecified (principal); R06.00 Dyspnea, unspecified
CPT/HCPCS: 71010; 71275; 80053; 83735; 83880; 84484; 85025; 85378; 85610; 85730; 93005; 99285; Q9967

== ENCOUNTER 2018-02-05 13:15 | Emergency (ER) | payer MEDICARE ==
[2018-02-05 13:16] VITALS: BMI 28.1
[2018-02-05 13:28] VITALS: O2SAT 97
--- NOTE | 2018-02-05 13:41 | C.PDOC ---
History Of Present Illness 72 y/o F c PMHx HTN, recently diagnosed with breast cancer s/p lumpectomy 4 months ago and last radiation treatment 11 days ago p/w episode of feeling like she is going to , crying, bilateral lower leg heaviness, perioral numbness, mild headache. Patient states she has had multiple panic attacks in the past and this feels similar. Daughter at bedside states that patient has been having anxiety since her breast cancer diagnosis. She was prescribed medication for anxiety by her PMD Hiram Rose but she states she did not take it because she was not feeling anxious at the time it was given, and she has since thrown it out. Currently, she complains of the perioral numbness, bilateral leg heaviness , and mild headache. Denies fever, chills, chest pain, dyspnea, nausea, vomiting , diarrhea, leg swelling, trauma. Time Seen by Provider: 02/05/18 13:23 Chief Complaint (Nursing): Palpitations Past Medical History Vital Signs: Last Vital Signs Temp 98.2 F 02/05/18 13:26 Pulse 89 02/05/18 13:26 Resp 20 02/05/18 13:26 BP 174/78 H 02/05/18 13:26 Pulse Ox 97 02/05/18 13:43 - Medical History PMH: Anemia, Anxiety, Osteoporosis Denies: Chronic Kidney Disease Family History: States: Unknown Family Hx - Social History Hx Tobacco Use: No Hx Alcohol Use: No Hx Substance Use: No - Immunization History Hx Tetanus Toxoid Vaccination: No Hx Influenza Vaccination: No Hx Pneumococcal Vaccination: No Review Of Systems Except As Marked, All Systems Reviewed And Found Negative. Constitutional: Negative for: Fever Cardiovascular: Negative for: Chest Pain Physical Exam - Physical Exam Additional Physical Exam Comments: Gen: Appears anxious, crying Head: NC/AT Eyes: PERRL ENT: MMM Neck: Supple Chest: No tenderness CV: Regular rate Lungs: CTA b/l Abd: Soft, NT Back: No CVA tenderness Extremities: No edema Skin: No rash Neuro: Alert, motor 5/5 x 4. Sensation to light touch intact bilaterally. ED Course And Treatment - Laboratory Results Result Diagrams: 02/05/18 13:46 02/05/18 13:46 O2 Sat by Pulse Oximetry: 97 Medical Decision Making Medical Decision Making: Will treat headache with toradol and anxiety with Ativan. Most likely panic attack, will rule out other metabolic disease. EKG NSR 77 bpm, no ST/T wave changes. Labs unremarkable. CXR no acute disease. Patient observed in ED, feels better, no distress. Will discharge, f/u with PMD , return to ED for worsening pain, neuro deficit, dyspnea, or any other problem. Disposition - Disposition Referrals: Hiram Rose MD [Staff Provider] - Disposition: HOME/ ROUTINE Disposition Time: 14:42 Condition: STABLE Additional Instructions: XR FINDINGS: LUNGS: Approximately 17 mm right upper lobe nodule containing nodular central calcification, possibly a hamartoma. No other pulmonary mass identified. No acute infiltrate. PLEURA: No significant pleural effusion identified, no pneumothorax apparent. CARDIOVASCULAR: Normal. OSSEOUS STRUCTURES: No significant abnormalities. VISUALIZED UPPER ABDOMEN: Normal. OTHER FINDINGS: None. IMPRESSION: No acute infiltrate. Probable hamartoma right upper lobe. Instructions: Anxiety, Adult (DC) Forms: [facility] (Peruvian) - Clinical Impression Clinical Impression: Panic attack
[2018-02-05 13:59] LABS: BASO % 0.5 % (0.0-2.0); EOS # 0.1 K/uL (0.0-0.7); EOS % 1.3 % (0.0-4.0); HEMOGLOBIN 12.9 g/dL (11.0-16.0); LYMPH # 1.4 K/uL (1.0-4.3); LYMPH % 17.8 % (20.0-40.0); MEAN CELL VOLUME 87.5 fL (81.0-99.0); MEAN CORPUSCULAR HEMOGLOBIN 29.8 pg (27.0-31.0); MEAN PLATELET VOLUME 8.5 fL (7.2-11.7); MONO # 0.6 K/uL (0.0-0.8); MONO % 7.2 % (0.0-10.0); NEUT # 5.8 K/uL (1.8-7.0); NEUT % 73.2 % (50.0-75.0); RBC 4.35 Mil/uL (3.80-5.20); RED CELL DISTRIBUTION WIDTH 14.2 % (11.5-14.5); WHITE BLOOD COUNT 7.9 K/uL (4.8-10.8)
[2018-02-05 14:26] LABS: ALB/GLOB RATIO 1.2 (1.0-2.1); ALBUMIN 4.1 g/dL (3.5-5.0); ALT/SGPT 22 U/L (9-52); AST/SGOT 24 U/L (14-36); BLOOD UREA NITROGEN 14 mg/dL (7-17); CALCIUM 9.6 mg/dl (8.6-10.4); GFR AFRICAN-AMERICAN > 60; GFR NON-AFRICAN AMERICAN > 60
--- NOTE | 2018-02-05 14:27 | RAD ---
Date of service: 02/05/2018 HISTORY: anxiety COMPARISON: 11/24/2016 FINDINGS: LUNGS: Approximately 17 mm right upper lobe nodule containing nodular central calcification, possibly a hamartoma. No other pulmonary mass identified. No acute infiltrate. PLEURA: No significant pleural effusion identified, no pneumothorax apparent. CARDIOVASCULAR: Normal. OSSEOUS STRUCTURES: No significant abnormalities. VISUALIZED UPPER ABDOMEN: Normal. OTHER FINDINGS: None. IMPRESSION: No acute infiltrate. Probable hamartoma right upper lobe.
[2018-02-05 14:51] VITALS: BP 147/75; PULSE 68; RESP 17
[2018-02-05 15:20] VITALS: TEMP 98.1
== END 2018-02-05 15:03 | disposition home or self-care (01) ==
LOC: C.ER 13:15
DX: F41.0 Panic disorder [episodic paroxysmal anxiety] (principal); C50.919 Malignant neoplasm of unspecified site of unspecified female breast; D64.9 Anemia, unspecified
CPT/HCPCS: 71045; 80053; 82948; 85025; 93005; 96374; 96375; 99285; J1885; J2060

== ENCOUNTER 2018-08-27 15:20 | Outpatient (CLI) | payer MEDICARE | END 2018-08-27 15:21 | disposition home or self-care (01) | LOC: C.MAMMO 15:20 | DX: Z12.31 Encounter for screening mammogram for malignant neoplasm of breast (principal) ==